=== PATIENT | male | born 1990 | race Native Hawaiian/Other Pacific Islander ===

== ENCOUNTER 2022-08-24 10:39 | Outpatient (CLI) | payer BC | END 2022-08-24 19:00 | disposition home or self-care (01) | LOC: US 10:39 | PROVIDERS: ATTEND Internal Medicine | DX: M79.605 Pain in left leg (principal) ==

== ENCOUNTER 2022-09-07 09:12 | Outpatient (CLI) | payer BC | END 2022-09-07 19:06 | disposition home or self-care (01) | LOC: MRI 09:12 | PROVIDERS: ATTEND Internal Medicine | DX: M79.605 Pain in left leg (principal) | CPT/HCPCS: A9576 ==